=== PATIENT | female | born 1965 | race Caucasian/White ===

== ENCOUNTER 2019-11-16 18:53 | Emergency (ER) | payer OTHER ==
[2019-11-16 19:13] VITALS: BP 127/61; PULSE 61; TEMP 97.4; BMI 26.5
--- NOTE | 2019-11-16 19:34 | PDOC ---
Documentation entered by Nayeli Covarrubias SCRIBE, acting as scribe for Clay Beltran MD. Clay Beltran MD: This documentation has been prepared by the Marci sanches Adrianna, SCRIBE, under my direction and personally reviewed by me in its entirety. I confirm that the documentation accurately reflects all work, treatment, procedures, and medical decision making performed by me. History of Present Illness - General Chief Complaint: Laceration Stated Complaint: LACERATION History Source: Patient Exam Limitations: No Limitations - History of Present Illness Initial Comments: The patient is a 54 year old female, with no significant PMH, who presents to the ED for evaluation of laceration. Patient notes an iPAD fell out of the cabinet earlier tonight and hit her in the face. Consequently, she developed a laceration to the innermost aspect of the left eyebrow. She denies and LOC during the event. Patient denies any other complaints at this time. PAST MEDICAL HISTORY: no significant history PAST SURGICAL HISTORY: no significant history FAMILY HISTORY: no pertinent history SOCIAL HISTORY: Pt lives with family and is employed. MEDICATIONS: reviewed ALLERGIES: As per nursing notes ROS General: No fevers or chills, no weakness, no weight loss HEENT: No change in vision. No sore throat,. No ear pain CardioVascular: No chest pain or shortness of breath Respiratory:No cough, or wheezing. Gastrointestinal: no nausea, vomiting, diarrhea or constipation, No rectal bleeding Genitourinary: No dysuria, hematuria, or frequency Musculoskeletal: No joint or muscle pain or swelling Neurologic: No headache, vertigo, dizziness or loss of consciousness Psychiatric: nor depression Skin: +Laceration to the left eyebrow. No rashes or easy bruising Endocrine: no increased thirst or abnormal weight change Allergic: no skin or latex allergy All other systems reviewed and normal Physical Exam GENERAL: The patient is awake, alert, and fully oriented, in no acute distress. HEAD: +~1.5 cm vertical laceration to the medial portion of the left eyebrow and forehead. EYES: Pupils equal, round and reactive to light, extraocular movements intact, sclera anicteric, conjunctiva clear. EXTREMITIES: Normal range of motion, no edema. NEUROLOGICAL: Normal speech, normal gait. PSYCH: Normal mood, normal affect. SKIN: Warm, Dry, normal turgor, no rashes or lesions noted. 11/16/19 20:12 Assessment and plan: This is a 54-year-old female who came in requesting a plastic surgeon for repair of her laceration of her face. We do not have any plastic surgeon on that is able to come to the ED this weekend. Patient's laceration was relatively superficial I offered to repair it however she wanted a plastic surgeon. Patient did not want to be transferred but stated she would prefer to be discharged and drive herself to the [facility] where there is a plastic surgeon available. Patient was discharged and went to the [facility] for definitive repair of her laceration Past History - Past Medical History Allergies/Adverse Reactions: Allergies Allergy/AdvReac Type Severity Reaction Status Date / Time terbutaline Allergy Verified 11/16/19 18:54 Home Medications: Ambulatory Orders Fluconazole [Diflucan] 200 mg PO WEEKLY 11/16/19 Prednisone 15 mg PO DAILY 11/16/19 Secukinumab [Cosentyx Pen (2 Pens)] 300 mg SQ MONTHLY 11/16/19 *Physical Exam - Vital Signs Last Vital Signs Temp Pulse Resp BP Pulse Ox 97.4 F L 61 20 127/61 96 11/16/19 18:53 11/16/19 18:53 11/16/19 18:53 11/16/19 18:53 11/16/19 18:53 Discharge - Discharge Information Problems reviewed: Yes Clinical Impression/Diagnosis: Facial laceration Qualifiers: Encounter type: initial encounter Qualified Code(s): S01.81XA - Laceration without foreign body of other part of head, initial encounter Condition: Stable Disposition: HOME - Admission No - Follow up/Referral - Patient Discharge Instructions Additional Instructions: We do not have a plastic surgeon that can come to our emergency department and closure lacerations so I have advised you to go to [facility] once you are discharged from here and they will have a plastic surgeon that can close your laceration. Return to the emergency department immediately with ANY new, persistent or worsening symptoms. Continue any medications as previously prescribed by your physician. Thank you for coming to the Emergency Department today for your care. It was a pleasure to see you today. Please note that your evaluation is INCOMPLETE until you follow-up with your doctor. - Post Discharge Activity
== END 2019-11-16 19:31 | disposition home or self-care (01) ==
LOC: FER 18:53
DX: S01.81XA Laceration without foreign body of other part of head, initial encounter (principal); W20.8XXA Other cause of strike by thrown, projected or falling object, initial encounter; Y93.89 Activity, other specified; Y92.008 Other place in unspecified non-institutional (private) residence as the place of occurrence of the external cause; Z88.8 Allergy status to other drugs, medicaments and biological substances
CPT/HCPCS: 99282-25